=== PATIENT | female | born 1970 | race Caucasian/White ===

== ENCOUNTER 2017-02-28 14:33 | Day surgery (SDC) | payer OTHER ==
[~2017-02-28] VITALS: Ht 165.1 cm; Wt 71.7 kg
[~2017-02-28 14:33] MED LIST: ATEN25TA PO; ESTR10TA VG; HYDR25TA4 PO; Lactated Ringer's 1,000 ML IV ONE; METH500T PO; OMEP20CA11 PO
[2017-02-28] MEDS ORDERED: Propofol 10,000 mCg/mL 20 mL Inj ONE (14:34)
[2017-02-28 15:05] VITALS: BP 113/75; PULSE 91; RESP 16; O2SAT 98
[2017-02-28] MEDS ORDERED: Lactated Ringer's 1,000 ML IV SCH (15:38)
[2017-02-28] MEDS ORDERED: MetoCLOpramide 5 mg/mL 2 mL Inj IVPUSH PRN (15:40)
[2017-02-28] MEDS ORDERED: Ondansetron 2 mg/mL 2 mL Inj IVPUSH PRN (15:40)
[2017-02-28 16:25] VITALS: BP 106/74; PULSE 92; RESP 16; O2SAT 99
[2017-02-28 16:35] VITALS: BP 102/76; PULSE 85; RESP 16; O2SAT 100
--- NOTE | 2017-02-28 16:36 | PCM.HPANE ---
Patient Data Surgeon Admitting Provider: Attending Provider:Rosalio Shaw MD Primary Care Physician:Mariela Golden MD Other Provider:Elyssa Bakeringham Anesthesia Reason for Visit Bowel Habit Changes, Dysphagia Ht/WT & BMI Height (Feet): 5 Height (Inches): 5 Weight (Kilograms): 71.67 Body Mass Index 26.00 Allergies Coded Allergies: codeine (Verified Allergy, Severe, ITCHING, 02/25/17) Uncoded Allergies: CODEINE (Ingr ADR) (Adverse Reaction, Mild, Itching, 06/28/09) Past Anesthesia History Anesthesia History: Denies:: Abnormal Airway, Anesthesia Reactions, Difficult Intubation, Fam Anesthesia Reaction, Fam Malignant Hypertherm, Malignant Hyperthermia Diabetes History Hx Diabetes?: No MRSA MRSA: No Medications Reported Medications Estradiol (Vagifem)10 Mcg [id number] Mcg VG 02/25/17 Methocarbamol (Robaxin)500 Mg [id number] Mg PO BID 02/25/17 Omeprazole 20 Mg Capsule.dr20 Mg PO DAILY Ref 0 02/25/17 Hydrochlorothiazide 25 Mg [id number] Mg PO DAILY 30 Days Ref 0 02/25/17 Atenolol 25 Mg Shyqen32 Mg PO DAILY #30 TABLET Ref 0 02/25/17 History History of ENT Problems?: Yes HEENT History: Positive for:: Sinus Problem (Occas bloody noses r/t dry air) Denies:: Cataracts Dysphagia Denture Type: None Teeth Condition: Within Normal Limits Hx of Heart Problems?: Yes Cardiovascular History: Positive for:: Chest Pain (Occurs only with panic attacks) Irregular Heartbeat (Has occas palpatations, usually r/t panic attacks.) Denies:: AICD Abdominal Aortic Aneurism Atrial Fibrillation Cardiac Surgery Congestive Heart Failure Coronary Artery Disease Edema Heart Murmur Hypertension Pacemaker Peripheral Vascular Rheumatic Fever Thrombophlebitis Valvular Heart Disease Hx of Respiratory Problem?: No Respiratory History: Positive for:: Dyspnea (Only w/ panic attacks.) Denies:: Asthma COPD Chest Surgery Cough Emphysema Hemoptysis Oxygen Administration Pneumonia Pulmonary Embolism Tuberculosis Use of C-PAP Machine Use of Inhalers / NEBS Hx Neurologic Problems?: Yes Neurological History: Positive for:: Headaches (Occasional migraines) Denies:: Alzheimer's Disease CVA Dementia Dizziness Multiple Sclerosis Parkinson's Disease Peripheral Neuropathy Seizures TIA Hx of GI Problems?: No Gastrointestinal History: Denies:: Cirrhosis Diverticulitis Gall Bladder Disease Gastroesphageal Reflux Gastrointestinal Bleeding Heartburn Hepatitis Hiatal Hernia Liver Disease Rectal Bleeding Hx of Problems?: Yes Genitourinary History: Positive for:: Urinary Tract Infection (Occasionally) Denies:: HX of Hemodialysis Kidney Stones HX of Peritoneal Dialysis: No Female Hx: Denies:: Currently (HYSTERECTOMY) Endometriosis Pelvic Inflammatory Problems with Breasts? Skin History: Denies:: History Skin Disorders? Pressure Ulcers Hx Musculoskeletal Problems?: Yes Musculoskeletal History: Positive for:: Back Injury Denies:: Degenerative Joint Fibromyalgia Joint Replacement Musculoskeletal Trauma Myasthenia Gravis Osteoarthritis Rheumatoid Arthritis Systemic Lupus Hx of Psycho/Social Problems?: Yes Psycho Social History: Positive for:: Anxiety (Has occasional panic attacks) Hx Depression (Recent situational depression r/t mother's health.) Denies:: Bipolar Disorder Suicide Attempt Hx Surgeries?: Yes (hysterectomy, left oophorectomy, extraction of wisdom tooth ) Hx Any Other Health Problems?: No Other History: Positive for:: Hospitalization Denies:: Cancer Endocrine Disease Thyroid Disease History Blood Transfusions: Denies:: Blood Transfusions Hx Diabetes: No Hx Alcohol Use: Yes (Occasionally and "very little when I do")Hx Substance Use : Yes (Occasional marijuana) Stop/Bang Risk Assessment Category Category 1A: Patient has history of documented sleep apnea, and HAS NOT received any narcotic, sedative or anesthesia administration during this stay. Category 1B: Patient has history of documented sleep apnea, and HAS received any narcotic , sedative or anesthesia administration during this stay Category 2: Patient has SUSPECTED Obstructive Sleep Apnea, and HAS received any narcotic , sedative or anesthesia administration during this stay. Category 3: Patient has SUSPECTED Obstructive Sleep Apnea and HAS NOT received narcotic, sedative or anesthesia administration during this stay. Category 4: Outpatient in Procedural Areas with known sleep apnea or who screen positive for High Risk via the STOP/BANG questionnaire. Exam Exam General Appearance: Alert, Oriented X3, Cooperative, No Acute Distress HEENT/AIRWAY: MP 2, Neck Movement (FROM), Mouth Opening (3 FBMO) Lungs: Clear to Auscultation, Normal Air Movement Heart: Exam Unremarkable, Regular Rate/Rhythm, No Murmurs/Rubs/Gallops Plan Impression Patient chart reviewed, patient interviewed and anesthestic plan with risks, benefits, and alternatives discussed, and informed consent obtained. NPO per Anesth. Guidelines: Yes ASA Physical Status: ASA2 Mod Systemic Disease Anesthetic Plan: MAC Bene/Risks/Altern/Consents: Yes HP Complete Prior to Induction: Yes Pako Gonzalez MD Feb 28, 2017 15:04
--- NOTE | 2017-02-28 16:37 | PCM.ANEP1 ---
Post Anesthesia PACU Phase 1 Assessment Vital Signs Vital Signs Date Time Temp Pulse Resp B/P Pulse Ox O2 Delivery O2 Flow Rate FiO2 02/28/17 16:25 92 16 106/74 99 Room Air 02/28/17 15:05 36.3 91 16 113/75 98 Room Air Anesthetic Administered: MAC Level of Alertness: Awake, talking RODAS's with Equal Strength: Yes Pain: Yes Nausea or Vomiting: No CV Function & Hydration Stable: No Airway Device: N/A Oxygen Delivery: Room Air Lungs: Clear to Auscultation, Normal Air Movement Dermatome Level: Full Sensation PACU Phase 2 Assessment Complications: No Follow up Care: N/A Patient Instructions Provided: N/A Pako Gonzalez MD Feb 28, 2017 16:37
[2017-02-28 16:45] VITALS: BP 118/75; PULSE 76; RESP 16; O2SAT 100
--- NOTE | 2017-02-28 22:41 | ENDO ---
[address] [address] ENDOSCOPY PROCEDURE PATIENT: GRABIEL SHI : 1970 MR#: [id number] ADMIT: 02/28/2017 JOB ID: [id number] DATE: 02/28/2017 PRIMARY PROVIDER: Mariela Golden MD PROCEDURE: 1. Esophagogastroduodenoscopy with biopsy. 2. Colonoscopy. INDICATIONS: A 46-year-old female with symptoms of intermittent diarrhea but mostly constipation and abdominal pain and even some dysphagia. The dysphagia has since resolved. She reports for endoscopic evaluation. I reviewed the CAT scan results with her prior to sedation, explaining that these appear to be benign findings in the liver. EQUIPMENT: GIF H 180 J and a PCF H 190 DL. SEDATION: Monitored anesthesia as provided by Dr. Pako Gonzalez. COMPLICATIONS: None identified. BOWEL PREPARATION: Excellent. PROCEDURE IN DETAIL: After the risks and benefits were explained, written and verbal informed consent was obtained. The patient was brought into the endoscopy suite and placed into the left lateral decubitus position. Sedation was achieved using the above-stated medications with the addition of oxygen via nasal cannula. The scope was introduced into the mouth through the bite block, and advanced under direct visualization to the second portion of the duodenum. The scope was slowly withdrawn to carefully examine the mucosa for any defects or lesions. Retroflexed views were accomplished in the stomach. The stomach was decompressed. The scope removed from the patient who tolerated the procedure well. The patient was then turned around and a digital rectal examination accomplished. No significant pathology appreciated. The scope was introduced into the rectum and advanced under direct visualization to the level of the cecum, as identified by the appendiceal orifice and ileocecal valve. The terminal ileum was briefly accessed. The scope was slowly withdrawn to carefully examine the mucosa for any defects or lesions. Multiple direct views were made through the dentate line for exclusion of pathology. The colon was decompressed. The scope removed from the patient who tolerated the procedure well. FINDINGS: 1. Duodenum: This appeared visually normal from the bulb through to the second portion. Considering the patient's symptoms, a couple of biopsies were taken from D2 for exclusion of sprue. 2. Stomach: Minimal nonspecific diffuse gastropathy identified. Random biopsy was taken for exclusion of Helicobacter or other pathology. Otherwise, I did not see any evidence of ulceration, mass lesion, outlet obstruction or any focal gastric pathology. Retroflexed views of the LES were unremarkable. 3. Esophagus: The squamocolumnar junction correlated with the top of the gastric folds. There was a very subtle sliding hiatal hernia. The GEJ was at 39 cm from the incisors. No acute erosive changes. No strictures. No mass lesions. The remainder of the esophagus appeared unremarkable. 4. Terminal ileum: This appeared visually normal. 5. Colon: No evidence of any macroscopic colitis anywhere throughout. Mucosa appeared completely normal. No significant polyps, mass lesions, or inflammatory features. ENDOSCOPIC DIAGNOSES: 1. Mild gastropathy. 2. Subtle sliding hiatal hernia. 3. Otherwise visually unremarkable upper endoscopy. 4. Visually unremarkable colonoscopy. RECOMMENDATIONS: 1. Await histopathology. 2. If Helicobacter is found, it will need to be eradicated with standard triple therapy. 3. Continue with bowel regimen especially if opiate medication is continued. 4. Follow up GI Clinic any time as needed.
--- NOTE | 2017-03-02 16:46 | PATH ---
SURGICAL PATHOLOGY Attending Physician:Kristie Francis CASE STATUS: Signed Out PATIENT NAME: GRABIEL SHI PID: [id number] : 1970 DATE COLLECTED:02/28/2017 00:00 SPECIMEN: 1: Duodenum, Biopsy 2: Gastric, Biopsy CLINICAL HISTORY: 1). DUODENAL BIOPSY 2). GASTRIC BIOPSY, RULE OUT H.PYLORI FINAL DIAGNOSIS: 1.DUODENAL BIOPSY: FRAGMENTS OF NORMAL-APPEARING SMALL BOWEL MUCOSA. Normal delicate mucosal villi present. Negative for significant inflammation, dysplasia and malignancy. 2.GASTRIC BIOPSY: MINIMAL SUPERFICIAL CHRONIC GASTRITIS INVOLVING FUNDIC MUCOSA. Negative for evidence of Helicobacter on H&E stain. Negative for intestinal metaplasia. Negative for dysplasia and malignancy. ICD10 K29.70 GROSS DESCRIPTION: 1. Received in formalin, labeled with the patient's name and "duodenal biopsy" are two fragments of soft berry tissue ranging from 0.1 x 0.1 x 0.1 cm to 0.3 x 0.2 x 0.2 cm. The fragments are totally submitted in cassette 1A. 2. Received in formalin, labeled with the patient's name and "gastric biopsy, R/O H. pylori" is one fragment of soft berry tissue measuring 0.4 x 0.2 x 0.2 cm. The fragment is totally submitted in cassette 2A. [id number]) MICRO DESCRIPTION: See diagnosis. ICD-9 CODES: CPT CODES: 1: 60674 2: 37665 Electronically Signed Out Rosalio Trivedi MD [facility] [address] [facility], [place] [address] Technical component performed at [facility], [facility] [address], [place], [address]
== END 2017-02-28 23:59 | disposition home or self-care (01) ==
LOC: END 14:33
PROVIDERS: ATTEND Internal Medicine Gastroenterology
DX: R19.7 Diarrhea, unspecified (principal); K29.50 Unspecified chronic gastritis without bleeding; K31.9 Disease of stomach and duodenum, unspecified; K44.9 Diaphragmatic hernia without obstruction or gangrene; I10 Essential (primary) hypertension; F41.9 Anxiety disorder, unspecified; M79.7 Fibromyalgia; F17.210 Nicotine dependence, cigarettes, uncomplicated; F12.90 Cannabis use, unspecified, uncomplicated; Z79.891 Long term (current) use of opiate analgesic
CPT/HCPCS: 43239; 45378; J7120